=== PATIENT | female | born 1960 | race Caucasian/White ===

== ENCOUNTER 2022-10-29 09:55 | Outpatient (CLI) | payer OTHER | END 2022-10-29 09:56 | disposition home or self-care (01) | LOC: RAD 09:55 | PROVIDERS: ATTEND Internal Medicine | DX: Z02.71 Encounter for disability determination (principal); M19.021 Primary osteoarthritis, right elbow; M47.812 Spondylosis without myelopathy or radiculopathy, cervical region; Q74.0 Other congenital malformations of upper limb(s), including shoulder girdle; Q68.8 Other specified congenital musculoskeletal deformities | CPT/HCPCS: 72040 ==